=== PATIENT | male | born 1950 | race Two or more races ===

== ENCOUNTER 2021-10-07 14:35 | Outpatient (CLI) | payer MEDICARE | END 2021-10-07 23:59 | disposition home or self-care (01) | LOC: RAD 14:35 | PROVIDERS: ATTEND Surgery | DX: J98.11 Atelectasis (principal); J90 Pleural effusion, not elsewhere classified; I51.7 Cardiomegaly; R91.8 Other nonspecific abnormal finding of lung field; M47.814 Spondylosis without myelopathy or radiculopathy, thoracic region; M19.011 Primary osteoarthritis, right shoulder; M19.012 Primary osteoarthritis, left shoulder | CPT/HCPCS: 71046 ==